=== PATIENT | male | born 1980 | race Caucasian/White ===

== ENCOUNTER 2018-05-24 08:36 | Emergency (ER) | payer OTHER, BC | END 2018-05-24 09:30 | disposition home or self-care (01) | LOC: E/R 08:36 | DX: H93.12 Tinnitus, left ear (principal); R40.2142 Coma scale, eyes open, spontaneous, at arrival to emergency department; R40.2362 Coma scale, best motor response, obeys commands, at arrival to emergency department; R40.2252 Coma scale, best verbal response, oriented, at arrival to emergency department | CPT/HCPCS: 93005; 99283-25; Z7502 ==